=== PATIENT | female | born 1960 | race Caucasian/White ===

== ENCOUNTER 2019-04-05 12:36 | Emergency (ER) | payer MEDICARE ==
[~2019-04-05] VITALS: Ht 162.6 cm; Wt 65.0 kg
[2019-04-05] MEDS ORDERED: BACL-141 PO (12:46)
[2019-04-05] MEDS ORDERED: MELO-104 PO (12:46)
[2019-04-05] MEDS ORDERED: APRE30TA2 PO (12:46)
[2019-04-05] MEDS ORDERED: LORAZEPAM 2MG/ML CPJ ONE (13:42)
[2019-04-05] MEDS ORDERED: KETOROLAC 60MG/2ML VIAL IM ONE (13:45)
[2019-04-05] MEDS ORDERED: TRAMADOL 50MG TABLET PO ONE (13:45)
[2019-04-05] MEDS ORDERED: LORAZEPAM 2MG/ML CPJ IV ONE (13:45)
[2019-04-05] MEDS ORDERED: OLANZAPINE 10 MG/VIAL IM ONE (14:15)
[2019-04-05] MEDS ORDERED: SODIUM CHLORIDE 0.9% 500 ML IV ONE (16:30)
[2019-04-05 17:15] VITALS: BP 110/57
== END 2019-04-05 17:30 | disposition home or self-care (01) ==
LOC: ER 12:36
DX: G89.29 Other chronic pain (principal); M25.512 Pain in left shoulder; M25.511 Pain in right shoulder; F41.9 Anxiety disorder, unspecified; F17.200 Nicotine dependence, unspecified, uncomplicated; F11.20 Opioid dependence, uncomplicated; F13.20 Sedative, hypnotic or anxiolytic dependence, uncomplicated; Z79.899 Other long term (current) drug therapy
CPT/HCPCS: 96372; 96374; 99283; J1885; J2060; J3490; J7040

== ENCOUNTER 2022-04-13 12:49 | Emergency (ER) | payer MEDICARE, OTHER ==
[~2022-04-13] VITALS: Ht 162.6 cm; Wt 80.0 kg
[~2022-04-13 12:49] MED LIST: APRE30TA2 PO; BACL-141 PO; MELO-104 PO
[2022-04-13 12:51] VITALS: BP 135/85
[2022-04-13] MEDS ORDERED: LORAZEPAM 1MG TABLET PO ONE (13:30)
[2022-04-13] MEDS ORDERED: OLANZAPINE 5MG TABLET ODT PO ONE (13:30)
[2022-04-13] MEDS ORDERED: KETOROLAC 60MG/2ML VIAL IM ONE (13:30)
== END 2022-04-13 14:13 | disposition home or self-care (01) ==
LOC: ER 14:10
DX: G89.29 Other chronic pain (principal); M79.18 Myalgia, other site; F41.9 Anxiety disorder, unspecified; F13.90 Sedative, hypnotic, or anxiolytic use, unspecified, uncomplicated; Z79.891 Long term (current) use of opiate analgesic
CPT/HCPCS: 99283; J1885